=== PATIENT | female | born 1995 | race African-American/Black ===

== ENCOUNTER 2020-10-18 09:56 | Emergency (ER) | payer OTHER, MEDICAID ==
[~2020-10-18] VITALS: Ht 157.5 cm; Wt 76.2 kg
== END 2020-10-18 11:30 | disposition home or self-care (01) ==
LOC: FSED 10:08
DX: O20.9 Hemorrhage in early pregnancy, unspecified (principal); O20.0 Threatened abortion
CPT/HCPCS: 36415; 80053; 81003; 81025; 84702; 85025; 86900; 99283